=== PATIENT | female | born 1965 ===

== ENCOUNTER 2017-10-12 14:46 | Emergency (ER) | payer SELFPAY | END 2017-10-12 15:03 | disposition left against medical advice (07) | LOC: ED 14:46 | DX: M62.838 Other muscle spasm (principal); Z53.21 Procedure and treatment not carried out due to patient leaving prior to being seen by health care provider ==

== ENCOUNTER 2021-10-14 14:06 | Inpatient (IN) | payer BC ==
[2021-10-14] MEDS ORDERED: SODIUM CHLORIDE 0.9% 1000 ML 1,000 ML IV ONE (14:08)
--- NOTE | 2021-10-14 14:11 | Emergency Department Report ---
ED General Adult HPI - General Chief complaint: Chest Pain Stated complaint: chest pain Time Seen by Provider: 10/14/21 14:07 - History of Present Illness Initial comments: Patient presents by EMS secondary chest pain. She woke up this morning. She felt well. About 9 AM she developed some chest tightness. It is precordial ti ghtness. She has not noticed any aggravating or alleviating factors. She states that she just could not get rid of it. She has had symptoms like this before. She was told it was her A. fib. Patient states her heart was racing. She states that she was slightly dizzy and lightheaded. She denies vertiginous symptoms. There is no nausea or vomiting. She has no history of recent travel or trauma. There was no history of cough or congestion. EMS was called. They felt the patient was in V. tach with a pulse and gave amiodarone 150 mg. They state that it helped initially, but the effect was transient. - Related Data Allergies Allergy/AdvReac Type Severity Reaction Status Date / Time ampicillin Allergy Shortness Verified 10/14/21 14:14 of Breath ED Review of Systems ROS: Stated complaint: chest pain Other details as noted in HPI Comment: All other systems reviewed and negative Constitutional: denies: fever Eyes: denies: vision change ENT: denies: throat pain Respiratory: denies: cough Cardiovascular: as per HPI Endocrine: denies: unexplained weight loss Gastrointestinal: denies: abdominal pain Genitourinary: denies: dysuria Musculoskeletal: denies: back pain Skin: denies: rash Neurological: denies: headache Hematological/Lymphatic: denies: easy bruising ED Physical Exam - General Limitations: No Limitations, Other (Pulse ox noted and normal by EMS) General appearance: alert, in no apparent distress, obese - Head Head exam: Present: atraumatic, normocephalic - Eye Eye exam: Present: normal appearance, EOMI. Absent: scleral icterus - ENT ENT exam: Present: normal orophraynx, normal external ear exam - Neck Neck exam: Present: normal inspection. Absent: meningismus - Respiratory Respiratory exam: Present: normal lung sounds bilaterally. Absent: respiratory distress - Cardiovascular Cardiovascular Exam: Present: tachycardia, irregular rhythm - GI/Abdominal GI/Abdominal exam: Present: soft. Absent: distended, tenderness - Extremities Exam Extremities exam: Present: normal capillary refill. Absent: calf tenderness - Back Exam Back exam: Absent: CVA tenderness (R), CVA tenderness (L) - Neurological Exam Neurological exam: Present: alert, oriented X3, CN II-XII intact. Absent: motor sensory deficit - Psychiatric Psychiatric exam: Present: normal affect, normal mood - Skin Skin exam: Present: warm, dry ED Course Vital Signs 10/14/21 10/14/21 14:07 14:17 Temperature 98.6 F Pulse Rate 158 H Respiratory 20 Rate Blood Pressure 150/105 [Left] O2 Sat by Pulse 98 95 Oximetry - Reevaluation(s) Reevaluation #1: 10/14/21 14:11 EMS was met upon arrival. EKG and labs were ordered. Old records noted. Reevaluation #2: 10/14/21 14:37 EKG was noted. There is no old EKG for comparison. Amiodarone drip and bolus were ordered. Reevaluation #3: 10/14/21 16:39 Labs are noted. These were reviewed with the patient and family. The patient was adamant that she be transferred to another hospital or leave. I had exte nsive discussion with her and her daughter and family about her diagnosis of ventricular tachycardia, the risks and benefits, as well as potential downsides of being here. Ultimately, patient agreed to stay here in this hospital. There was no electrolyte derangement. Etiology for the electrical malfunction of her heart was not clear. There is no evidence of STEMI. ED Medical Decision Making - Lab Data Result diagrams: 10/14/21 14:18 10/14/21 14:18 Rhythm strip #1: Wide-complex tachycardia at 150 consistent with ventricular tachycardia. This is very regular. Monitor observed in seconds. Rhythm strip #2: Patient has an underlying sinus rhythm with frequent unifocal PVCs. These are sometimes by themselves, sometimes in couplets, and sometimes in runs of 5-6. Monitor observe 10 seconds. - EKG Data -: EKG Interpreted by Me (Rhythm) - EKG Data When compared to previous EKG there are: previous EKG unavailable 10/14/21 14:37 Patient has a wide-complex tachycardia at 150. QRS is wide at 166. QT corrected is prolonged at 595. Patient seems to have a very regular wide- complex tachycardia. She has a pulse. This is possibly V. tach versus atrial fibrillation with a bundle branch block. - Radiology Data Radiology results: report reviewed - Medical Decision Making Patient presents with chest pain and evidence of ventricular tachycardia. Based on her rhythm strip, she does have an underlying normal sinus rhythm. She has frequent PVCs that are unifocal. This would be consistent with a V. tach on her initial presentation. She has been stabilized with amiodarone. She was not hemodynamically unstable so cardioversion was not initiated. There is no metabolic derangement to account for the symptoms. There is no evidence of STEMI. She will undergo cardiac evaluation and admission to this hospital. Critical Care Time: Yes (65 minutes exclusive of all procedures) Critical care attestation.: If time is entered above; I have spent that time in minutes in the direct care of this critically ill patient, excluding procedure time. ED Disposition Clinical Impression: Precordial chest pain, Ventricular tachycardia Disposition: 09 ADMITTED INPATIENT Is pt being admited?: Yes Condition: Stable Instructions: Nonspecific Chest Pain, Adult
--- NOTE | 2021-10-14 14:45 | XRay Report ---
CHEST 1 VIEW INDICATION: Chest pain. COMPARISON: None FINDINGS: Support devices: None. Heart: Within normal limits. Lungs/Pleura: No acute air space or interstitial disease. Additional findings: None. IMPRESSION: No acute findings. Signer Name: Kyle Fuentes Jr, MD Signed: 10/14/2021 2:41 PM Workstation Name: [id number]
[2021-10-14] MEDS ORDERED: AMIODARONE 150 MG in DEXTROSE 5% IN WATER 100 ML IV ONE (14:46)
[2021-10-14 14:48] LABS: Basophils # (Auto) 0.1 K/mm3 (0.0-0.1); Basophils % (Auto) 1.1 % (0.0-1.8); Eosinophils # (Auto) 0.1 K/mm3 (0.0-0.4); Eosinophils % (Auto) 1.3 % (0.0-4.3); Hematocrit 45.3 % (30.3-42.9); Hemoglobin 14.7 gm/dl (10.1-14.3); Lymphocytes # (Auto) 2.8 K/mm3 (1.2-5.4); Lymphocytes % (Auto) 33.1 % (13.4-35.0); Mean Corpuscular HGB Conc 33 % (30-34); Mean Corpuscular Volume 88 fl (79-97); Monocytes # (Auto) 0.7 K/mm3 (0.0-0.8); Monocytes % (Auto) 8.2 % (0.0-7.3); Platelet Count 290 K/mm3 (140-440); Red Blood Count 5.14 M/mm3 (3.65-5.03); Red Cell Distribution Width 14.7 % (13.2-15.2)
[2021-10-14] MEDS: AMIODARONE 360 MG in DEXTROSE 5% IN WATER 192.8 ML IV SCH ×2 (15:00→20:48)
[2021-10-14] MEDS ORDERED: AMIODARONE 150 MG in DEXTROSE 5% IN WATER 97 ML IV ONE (15:00)
[2021-10-14 15:02] LABS: BUN/Creatinine Ratio 16; Blood Urea Nitrogen 13 mg/dL (7-17); Hemolysis Index 27
--- NOTE | 2021-10-14 18:05 | History and Physical Report ---
History of Present Illness Date of examination: 10/14/21 Date of admission: 10/14/2021 Chief complaint: Palpitations and chest pain since 9 AM History of present illness: 55-year-old -[place] female with history of insulin-dependent diabetes, hypertension, hyperlipidemia and vitamin D deficiency comes in for palpitations and chest tightness since 9 AM. Apparently he had the symptoms before but did not see a [employer] at that time patient felt dizzy and lightheaded. Chest tightness is intermittent. Precipitated by palpitations. EMS was called and tiffanie kaur was given amiodarone 150 mg. Route of administration is not known. No fever or chills. No diaphoresis. No shortness of breath. Patient says her heart is fine and wanted to leave AMA after couple hours. ED course--- patient undergo signed out AMA.. Patient was explained the disease process and the pathophysiology after which he decided to stay. Patient was started on amiodarone IV and oral diltiazem. Patient was in V. tach with a heart rate of 160. Intermittently changed to sinus rhythm with frequent PVCs. Past History Past Medical History: diabetes, hypertension, hyperlipidemia, other (Vitamin D deficiency) Past Surgical History: No surgical history Social history: lives with family, full code Family history: hypertension Review of Systems ROS: Stated complaint: chest pain Other details as noted in HPI Comment: All other systems reviewed and negative Constitutional: denies: fever Eyes: denies: vision change ENT: denies: throat pain Respiratory: denies: cough Cardiovascular: Palpitations and chest tightness. Endocrine: denies: unexplained weight loss Gastrointestinal: denies: abdominal pain Genitourinary: denies: dysuria Musculoskeletal: denies: back pain Skin: denies: rash Neurological: denies: headache Hematological/Lymphatic: denies: easy bruising Medications and Allergies Allergies Allergy/AdvReac Type Severity Reaction Status Date / Time ampicillin Allergy Shortness Verified 10/14/21 14:14 of Breath Home Medications Medication Instructions Recorded Confirmed Last Taken Type Amlodipine Besylate [Norvasc] 10 mg PO DAILY 10/15/21 10/15/21 Unknown History Ascorbic Acid [Vitamin C] 500 mg PO DAILY 10/15/21 10/15/21 Unknown History AtorvaSTATin 10 mg PO DAILY 10/15/21 10/15/21 Unknown History Ergocalciferol [Vitamin D2] 1 cap PO QWEEK 10/15/21 10/15/21 Unknown History Insulin Glargine,Hum.rec.anlog 22 units SUB-Q QHS 10/15/21 10/15/21 Unknown History [Toumarilino Solostar] Losartan [Cozaar] 25 mg PO QDAY 10/15/21 10/15/21 Unknown History Metoprolol Succinate [Toprol Xl] 50 mg PO DAILY 10/15/21 10/15/21 Unknown History Vitamin E Mixed [Vitamin E] 1,000 unit PO DAILY 10/15/21 10/15/21 Unknown History metFORMIN XR [Glucophage XR] 1,000 mg PO QDAY 10/15/21 10/15/21 Unknown History Active Meds: Active Medications Amiodarone HCl 360 mg/ (Dextrose) 200 mls @ 33.333 mls/hr IV DIRECT NING; Protocol Exam - Constitutional Vitals: Temp Pulse Resp BP Pulse Ox 98.6 F 127 H 16 128/92 99 10/14/21 14:07 10/14/21 17:06 10/14/21 17:06 10/14/21 17:06 10/14/21 17:06 General appearance: Present: no acute distress, well-nourished - EENT Eyes: Present: PERRL ENT: hearing intact, clear oral mucosa - Neck Neck: Present: supple, normal ROM - Respiratory Respiratory effort: normal Respiratory: bilateral: CTA - Cardiovascular Heart rate: 160 Rhythm: regularly irregular Heart Sounds: Present: S1 & S2. Absent: rub, click - Extremities Extremities: no ischemia, pulses intact, pulses symmetrical, No edema Peripheral Pulses: within normal limits - Abdominal General gastrointestinal: Present: soft, non-tender, non-distended, normal bowel sounds Female genitourinary: Present: normal - Integumentary Integumentary: Present: clear, warm, dry - Musculoskeletal Musculoskeletal: gait normal, strength equal bilaterally - Psychiatric Psychiatric: appropriate mood/affect, intact judgment & insight - Neurologic Neurologic: CNII-XII intact, moves all extremities - Allied Health Allied health notes reviewed: nursing, case management HEART Score - HEART Score History: Moderately suspicious Age: 45-65 Risk factors: > 3 risk factors or hx of atherosclerotic disease Troponin: Troponin T < 0.010 ng/mL (0.00-0.029) 10/14/21 17:05 Troponin: < normal limit - Critical Actions Critical Actions: 4-6 pts:12-16.6% risk of adverse cardiac event. Should be admitted Results - Labs CBC & Chem 7: 10/15/21 05:06 10/15/21 05:06 Labs: Laboratory Last Values WBC 8.5 K/mm3 (4.5-11.0) 10/14/21 14:18 RBC 5.14 M/mm3 (3.65-5.03) H 10/14/21 14:18 Hgb 14.7 gm/dl (10.1-14.3) H 10/14/21 14:18 Hct 45.3 % (30.3-42.9) H 10/14/21 14:18 MCV 88 fl (79-97) 10/14/21 14:18 MCH 29 pg (28-32) 10/14/21 14:18 MCHC 33 % (30-34) 10/14/21 14:18 RDW 14.7 % (13.2-15.2) 10/14/21 14:18 Plt Count 290 K/mm3 (140-440) 10/14/21 14:18 Lymph % (Auto) 33.1 % (13.4-35.0) 10/14/21 14:18 Valley % (Auto) 8.2 % (0.0-7.3) H 10/14/21 14:18 Eos % (Auto) 1.3 % (0.0-4.3) 10/14/21 14:18 Baso % (Auto) 1.1 % (0.0-1.8) 10/14/21 14:18 Lymph # (Auto) 2.8 K/mm3 (1.2-5.4) 10/14/21 14:18 Valley # (Auto) 0.7 K/mm3 (0.0-0.8) 10/14/21 14:18 Eos # (Auto) 0.1 K/mm3 (0.0-0.4) 10/14/21 14:18 Baso # (Auto) 0.1 K/mm3 (0.0-0.1) 10/14/21 14:18 Seg Neutrophils % 56.3 % (40.0-70.0) 10/14/21 14:18 Seg Neutrophils # 4.8 K/mm3 (1.8-7.7) 10/14/21 14:18 Sodium 145 mmol/L (137-145) 10/14/21 14:18 Potassium 3.5 mmol/L (3.6-5.0) L 10/14/21 14:18 Chloride 104.8 mmol/L (98-107) 10/14/21 14:18 Carbon Dioxide 24 mmol/L (22-30) 10/14/21 14:18 Anion Gap 20 mmol/L 10/14/21 14:18 BUN 13 mg/dL (7-17) 10/14/21 14:18 Creatinine 0.8 mg/dL (0.6-1.2) 10/14/21 14:18 Estimated GFR > 60 ml/min 10/14/21 14:18 BUN/Creatinine Ratio 16 % 10/14/21 14:18 Glucose 188 mg/dL (65-100) H 10/14/21 14:18 Calcium 10.0 mg/dL (8.4-10.2) 10/14/21 14:18 Magnesium 2.00 mg/dL (1.7-2.3) 10/14/21 14:18 Troponin T < 0.010 ng/mL (0.00-0.029) 10/14/21 17:05 Short CBC 10/14/21 10/15/21 Range/Units 14:18 05:06 WBC 8.5 5.6 (4.5-11.0) K/mm3 Hgb 14.7 H 13.7 (10.1-14.3) gm/dl Hct 45.3 H 41.8 (30.3-42.9) % Plt Count 290 225 (140-440) K/mm3 [facility] 10/14/21 10/15/21 14:18 05:06 Sodium 145 144 Potassium 3.5 L 3.0 L Chloride 104.8 104.7 Carbon Dioxide 24 27 BUN 13 10 Creatinine 0.8 0.5 L Glucose 188 H 139 H Calcium 10.0 9.4 Cardiac Enzymes 10/14/21 10/14/21 Range/Units 14:18 17:05 Troponin T < 0.010 < 0.010 (0.00-0.029) ng/mL Liver Function 10/15/21 Range/Units 05:06 Total Bilirubin 0.20 (0.1-1.2) mg/dL AST 18 (5-40) units/L ALT 16 (7-56) units/L Alkaline Phosphatase 74 (35-129) units/L Albumin 4.2 (3.9-5) g/dL - Imaging and Cardiology EKG: report reviewed (Ventricular tachycardia with heart rate of 160/min IVCD) Imaging and Cardiology: Chest x-ray no acute findings Assessment and Plan Assessment and plan: Critical care statement The high probability OF a clinically significant sudden or life-threatening deterioration of the cardiorespiratory system and endocrine system required my full and direct attention, intervention and postoperative management. The aggregate critical care time was 40 minutes. The time is in addition to time spent performing reported procedures but includes the followin: Data review and interpretation 2: Patient assessment and monitoring of vital signs 3: Documentation 4:: Medication orders and management Advance Directives: Yes (Full code) VTE prophylaxis?: Chemical Plan of care discussed with patient/family: Yes - Patient Problems (1) Ventricular tachycardia Current Visit: Yes Status: Acute Plan to address problem: Patient initiated on IV amiodarone and oral diltiazem 30 mg every 6 hours IV Lopressor given Cardiology consult requested Patient responding to amiodarone drip Defer to cardiology regarding further management Will defer to [facility] who are inspector heating and refrigeration regarding EPS consult. (2) Acute coronary syndrome Current Visit: Yes Status: Acute Plan to address problem: Ventricular rate induced Opponens are negative for now Lexiscan deferred to cardiology (3) Hypertension Current Visit: Yes Status: Chronic Qualifiers: Hypertension type: primary hypertension Qualified Code(s): I10 - Essential (primary) hypertension Plan to address problem: Continue antihypertensives Diltiazem 30 mg every 6 hours requested Can be changed to once a day diltiazem CD once the patient is stable (4) IDDM (insulin dependent diabetes mellitus) Current Visit: Yes Status: Chronic Plan to address problem: Continue home insulin and coverage Check hemoglobin A1c (5) Vitamin D deficiency Current Visit: Yes Status: Chronic Plan to address problem: Hold vitamin D for now (6) Hypokalemia Current Visit: Yes Status: Acute Plan to address problem: Supplemented (7) Obesity (BMI 30-39.9) Current Visit: Yes Status: Chronic Plan to address problem: Patient to be referred to Dr. Cohen-bariatric surgeon at the time of discharge (8) DVT prophylaxis Current Visit: Yes Status: Acute Plan to address problem: On anticoagulation GI prophylaxis (9) Advance care planning Current Visit: Yes Status: Acute Plan to address problem: Patient and family heart disease education. Care plan discussed. Diagnosis discussed, prognosis discussed. Patient is full code. Patient and family acknowledged understanding and agreement with care plan. +30 minutes.
[2021-10-14] MEDS ORDERED: ACETAMINOPHEN 325 MG TAB PO PRN (18:11)
[2021-10-14] MEDS ORDERED: HYDROmorphone 1 MG/1 ML INJ IV PRN (18:11)
[2021-10-14] MEDS ORDERED: ONDANSETRON 4 MG/2 ML INJ IV PRN (18:11)
[2021-10-14] MEDS ORDERED: oxyCODONE /ACETAMINOPHEN 5-325MG TAB PO PRN (18:11)
[2021-10-14] MEDS ORDERED: METOPROLOL TARTRATE 5 MG/5 ML INJ IV ONE (18:29)
[2021-10-14] MEDS: dilTIAZem 30 MG TAB PO SCH (20:51)
[2021-10-14] MEDS: ENOXAPARIN 40 MG/0.4 ML INJ SUB-Q SCH (20:51)
[2021-10-15] MEDS: dilTIAZem 30 MG TAB PO SCH ×4 (00:59→21:19)
[2021-10-15 05:25] LABS: Basophils % (Auto) 0.6 % (0.0-1.8); Eosinophils # (Auto) 0.1 K/mm3 (0.0-0.4); Eosinophils % (Auto) 1.6 % (0.0-4.3); Hematocrit 41.8 % (30.3-42.9); Hemoglobin 13.7 gm/dl (10.1-14.3); Lymphocytes # (Auto) 2.1 K/mm3 (1.2-5.4); Lymphocytes % (Auto) 36.9 % (13.4-35.0); Mean Corpuscular HGB Conc 33 % (30-34); Mean Corpuscular Volume 89 fl (79-97); Monocytes # (Auto) 0.5 K/mm3 (0.0-0.8); Monocytes % (Auto) 8.8 % (0.0-7.3); Platelet Count 225 K/mm3 (140-440); Red Blood Count 4.72 M/mm3 (3.65-5.03); Red Cell Distribution Width 14.7 % (13.2-15.2)
[2021-10-15 05:48] LABS: Alanine Aminotransferase 16 units/L (7-56); Albumin 4.2 g/dL (3.9-5); BUN/Creatinine Ratio 20; Blood Urea Nitrogen 10 mg/dL (7-17); Calcium 9.4 mg/dL (8.4-10.2); Hemolysis Index 8
[2021-10-15] MEDS ORDERED: POTASSIUM CHLORIDE ER 20 MEQ TAB PO ONE (06:16)
[2021-10-15] MEDS: POTASSIUM CHLORIDE ER 20 MEQ TAB PO SCH ×2 (06:55→11:10)
[2021-10-15] MEDS ORDERED: metFORMIN XR 500MG TAB PO SCH (08:00)
[2021-10-15] MEDS: INSULIN LISPRO 100 UNIT/ML SUB-Q SCH ×5 (08:06→21:22)
--- NOTE | 2021-10-15 08:12 | Progress Note ---
Assessment and Plan Assessment and plan: HPI: 55-year-old -British female with history of insulin-dependent diabetes, hypertension, hyperlipidemia and vitamin D deficiency comes in for palpitations and chest tightness since 9 AM. Apparently he had the symptoms before but did not see a shopper insights manager at that time patient felt dizzy and lightheaded. Chest tightness is intermittent. Precipitated by palpitations. EMS was called and patient was given amiodarone 150 mg. Route of administration is not known. No fever or chills. No diaphoresis. No shortness of breath. Patient says her heart is fine and wanted to leave AMA after couple hours. ED course--- patient undergo signed out AMA.. Patient was explained the disease process and the pathophysiology after which he decided to stay. Patient was started on amiodarone IV and oral diltiazem. Patient was in V. tach with a heart rate of 160. Intermittently changed to sinus rhythm with frequent PVCs. Admitted to IMCU for further management and observation for ventricular tachycardia. Hospital Course: 10/15: Currently on toprol and amiodorone for VT. Ventricular rate fluctuates between 80-120s. Based on extensive work up in past, cardiology recommends transfer. Will coordinate with them for arrangements. Assessment and Plan: # Ventricular tachycardia Current Visit: Yes Status: Acute Plan to address problem: Patient initiated on IV amiodarone and oral diltiazem 30 mg every 6 hours IV Lopressor given Cardiology consult requested Patient responding to amiodarone drip Defer to cardiology regarding further management Will defer to [facility], per note symptoms date back to 2010, had cardiac cath and EP study which were normla. Cardiac MR was also reported to be normal. EPS did not induce VT , patient was subsequently initiated on metoprolol. # Acute coronary syndrome Current Visit: Yes Status: Acute Plan to address problem: Ventricular rate induced Troponins are negative x 2 Lexiscan deferred to cardiology # Hypertension Current Visit: Yes Status: Chronic Qualifiers: Hypertension type: primary hypertension Qualified Code(s): I10 - Essential (primary) hypertension Plan to address problem: Continue home antihypertensives: metoprolol, amlodipine. # IDDM (insulin dependent diabetes mellitus) Current Visit: Yes Status: Chronic Plan to address problem: Hold home metformin Lantus 22 units qhs + SSI Continue home insulin and coverage Check hemoglobin A1c # Vitamin D deficiency Current Visit: Yes Status: Chronic Plan to address problem: Hold vitamin D for now # Hypokalemia Current Visit: Yes Status: Acute Plan to address problem: Supplemented mg 2.0 ERP # Obesity (BMI 30-39.9) Current Visit: Yes Status: Chronic Plan to address problem: Patient to be referred to Dr. Cohen-bariatric surgeon at the time of discharge # DVT prophylaxis Current Visit: Yes Status: Acute Plan to address problem: On anticoagulation GI prophylaxis (9) Advance care planning Current Visit: Yes Status: Acute Plan to address problem: Patient and family heart disease education. Care plan discussed. Diagnosis discussed, prognosis discussed. Patient is full code. Patient and family acknowledged understanding and agreement with care plan. +30 minutes. The high probability of a clinically significant, sudden or life threatening deterioration of the [cardiac] system(s) required my full and direct attention, intervention and personal management. The aggregate critical care time was [60] minutes. This time is in addition to time spent performing reported procedures but includes the following: [x] Data Review and interpretation [x] Patient assessment and monitoring of vital signs [x] Documentation [x] Medication orders and management History Interval history: NO acute complaints on encounter. Resting comfortably, no distress. she states her heart rate has been elevated like this previously. Patient states that she has a shopper insights manager OP at [facility] that had run some "tests" but could not recall much of what was completed. She was told to start metoprolol and has been on the medication since. Hospitalist Physical - Physical exam Narrative exam: Physical Exam: VITAL SIGNS: Reviewed. GENERAL: The patient appears normally developed, Vital signs as documented. HEAD: No signs of head trauma. EYES: Pupils are equal. Extraocular motions intact. EARS: Hearing grossly intact. MOUTH: Oropharynx is normal. NECK: No adenopathy, no JVD. CHEST: Chest with clear breath sounds bilaterally. No wheezes, rales, or rhonchi. CARDIAC: Regular rate and rhythm. S1 and S2, without murmurs, gallops, or rubs. VASCULAR: No Edema. Peripheral pulses normal and equal in all extremities. ABDOMEN: Soft, non tender and non distended. No rebound or guarding, and no masses palpated. Bowel Sounds normal. MUSCULOSKELETAL: Good range of motion of all major joints. Extremities without clubbing, cyanosis or edema. NEUROLOGIC EXAM: Alert and oriented x 4. no focal sensory or strength deficits. PSYCHIATRIC: Mood normal. SKIN: detail exam as documented in skin assessment - Constitutional Vitals: Temp Pulse Resp BP Pulse Ox 98.3 F 115 H 13 157/85 90 10/15/21 05:45 10/15/21 06:55 10/15/21 05:01 10/15/21 06:55 10/15/21 05:01 General appearance: Present: no acute distress, well-nourished HEART Score - HEART Score Age: 45-65 Risk factors: > 3 risk factors or hx of atherosclerotic disease Troponin: Troponin T < 0.010 ng/mL (0.00-0.029) 10/14/21 17:05 Troponin: < normal limit - Critical Actions Critical Actions: 4-6 pts:12-16.6% risk of adverse cardiac event. Should be admitted Results - Labs CBC & Chem 7: 10/15/21 05:06 10/15/21 05:06 Labs: Laboratory Last Values WBC 5.6 K/mm3 (4.5-11.0) 10/15/21 05:06 RBC 4.72 M/mm3 (3.65-5.03) 10/15/21 05:06 Hgb 13.7 gm/dl (10.1-14.3) 10/15/21 05:06 Hct 41.8 % (30.3-42.9) 10/15/21 05:06 MCV 89 fl (79-97) 10/15/21 05:06 MCH 29 pg (28-32) 10/15/21 05:06 MCHC 33 % (30-34) 10/15/21 05:06 RDW 14.7 % (13.2-15.2) 10/15/21 05:06 Plt Count 225 K/mm3 (140-440) 10/15/21 05:06 Lymph % (Auto) 36.9 % (13.4-35.0) H 10/15/21 05:06 [facility] % (Auto) 8.8 % (0.0-7.3) H 10/15/21 05:06 Eos % (Auto) 1.6 % (0.0-4.3) 10/15/21 05:06 Baso % (Auto) 0.6 % (0.0-1.8) 10/15/21 05:06 Lymph # (Auto) 2.1 K/mm3 (1.2-5.4) 10/15/21 05:06 [facility] # (Auto) 0.5 K/mm3 (0.0-0.8) 10/15/21 05:06 Eos # (Auto) 0.1 K/mm3 (0.0-0.4) 10/15/21 05:06 Baso # (Auto) 0.0 K/mm3 (0.0-0.1) 10/15/21 05:06 Seg Neutrophils % 52.1 % (40.0-70.0) 10/15/21 05:06 Seg Neutrophils # 2.9 K/mm3 (1.8-7.7) 10/15/21 05:06 Sodium 144 mmol/L (137-145) 10/15/21 05:06 Potassium 3.0 mmol/L (3.6-5.0) L 10/15/21 05:06 Chloride 104.7 mmol/L (98-107) 10/15/21 05:06 Carbon Dioxide 27 mmol/L (22-30) 10/15/21 05:06 Anion Gap 15 mmol/L 10/15/21 05:06 BUN 10 mg/dL (7-17) 10/15/21 05:06 Creatinine 0.5 mg/dL (0.6-1.2) L 10/15/21 05:06 Estimated GFR > 60 ml/min 10/15/21 05:06 BUN/Creatinine Ratio 20 % 10/15/21 05:06 Glucose 139 mg/dL (65-100) H 10/15/21 05:06 Calcium 9.4 mg/dL (8.4-10.2) 10/15/21 05:06 Magnesium 2.00 mg/dL (1.7-2.3) 10/14/21 14:18 Total Bilirubin 0.20 mg/dL (0.1-1.2) 10/15/21 05:06 AST 18 units/L (5-40) 10/15/21 05:06 ALT 16 units/L (7-56) 10/15/21 05:06 Alkaline Phosphatase 74 units/L (35-129) 10/15/21 05:06 Troponin T < 0.010 ng/mL (0.00-0.029) 10/14/21 17:05 Total Protein 6.7 g/dL (6.3-8.2) 10/15/21 05:06 Albumin 4.2 g/dL (3.9-5) 10/15/21 05:06 Albumin/Globulin Ratio 1.7 % 10/15/21 05:06 Perez/IV: Voiding Method Toilet Active Medications - Current Medications Current Medications: Generic Name Dose Route Start Last Admin Trade Name Freq PRN Reason Stop Dose Admin Acetaminophen 650 mg 10/14/21 18:11 Acetaminophen 325 Mg Tab PO Q4H PRN Pain MILD(1-3)/Fever >100.5/CORBIN Amlodipine Besylate 10 mg 10/15/21 10:00 Amlodipine 10 Mg Tab PO DAILY [facility] Ascorbic Acid 500 mg 10/15/21 10:00 Ascorbic Acid 500 Mg Tab PO DAILY [facility] Atorvastatin Calcium 10 mg 10/15/21 10:00 Atorvastatin 10 Mg Tab PO DAILY [facility] Diltiazem HCl 30 mg 10/14/21 19:00 10/15/21 06:55 Diltiazem 30 Mg Tab PO 30 mg Q6H [facility] Administration Enoxaparin Sodium 40 mg 10/14/21 19:00 10/14/21 20:51 Enoxaparin 40 Mg/0.4 Ml Inj SUB-Q 40 mg QDAY [facility] Administration Hydromorphone HCl 0.5 mg 10/14/21 18:11 Hydromorphone 1 Mg/1 Ml Inj IV Q3H PRN Pain , Severe (7-10) Amiodarone HCl 360 mg/ 200 mls @ 33.333 mls/hr 10/14/21 15:00 10/14/21 20:48 Dextrose IV 0.5 mg/min DIRECT [facility] 16.667 mls/hr Administration Protocol 1 MG/MIN Sodium Chloride 1,000 mls @ 75 mls/hr 10/14/21 18:15 Nacl 0.9% 1000 Ml IV DIRECT [facility] Insulin Glargine 22 units 10/15/21 22:00 Insulin Glargine 100 Units/Ml SUB-Q QHS [facility] Insulin Human Lispro 0 unit 10/15/21 07:30 10/15/21 08:06 Insulin Lispro 100 Unit/Ml SUB-Q Not Given ACHS [facility] Protocol Losartan Potassium 25 mg 10/15/21 08:00 Losartan 25 Mg Tab PO QDAY@0800 NING Metformin HCl 1,000 mg 10/15/21 08:00 Metformin Xr 500mg Tab PO QDDIAB NING Metoprolol Succinate 50 mg 10/15/21 10:00 Metoprolol Succinate Xl 50 Mg Tab PO DAILY NING Ondansetron HCl 4 mg 10/14/21 18:11 Ondansetron 4 Mg/2 Ml Inj IV Q8H PRN Nausea And Vomiting Oxycodone/Acetaminophen 1 tab 10/14/21 18:11 Oxycodone /Acetaminophen 5-325mg Tab PO Q6H PRN Pain, Moderate (4-6) Potassium Chloride 40 meq 10/15/21 07:00 10/15/21 06:55 Potassium Chloride Er 20 Meq Tab PO 10/15/21 11:00 40 meq Q4H NING Administration Sodium Chloride 10 ml 10/14/21 22:00 10/14/21 22:22 Sodium Chloride 0.9% 10 Ml Flush Syringe IV 10 ml BID NING Administration Sodium Chloride 10 ml 10/14/21 18:11 Sodium Chloride 0.9% 10 Ml Flush Syringe IV PRN PRN LINE FLUSH
[2021-10-15] MEDS: LOSARTAN 25 MG TAB PO SCH (08:14)
--- NOTE | 2021-10-15 08:50 | Electrocardiograph Report ---
[facility] Test Date: 2021-10-14 Test Time: 14:24:56 Pat Name: HARISH PAGAN Department: Room: A265 1 Gender: F Clinical Pharmacologist: ZACHARIAH : 1965 Requested By: RICK BULLOCK Order Number: [id number] Reading MD: Marcell Stephenson Measurements Intervals [place] Rate: 150 P: -59 ME: 130 QRS: 87 QRSD: 166 T: -89 QT: 376 QTc: 595 Interpretive Statements WIDE COMPLEX TACHYCARDIA consider vtach No previous ECG available for comparison Electronically Signed On 10-15-2021 8:50:04 EST by Marcell Stephenson
[2021-10-15] MEDS: AMIODARONE 360 MG in DEXTROSE 5% IN WATER 192.8 ML IV SCH ×2 (08:57→18:14)
[2021-10-15] MEDS: SODIUM CHLORIDE 0.9% 1000 ML 1,000 ML IV SCH ×2 (08:59→21:35)
[2021-10-15] MEDS: METOPROLOL SUCCINATE XL 50 MG TAB PO SCH (09:01)
[2021-10-15] MEDS: amLODIPine 10 MG TAB PO SCH (09:02)
[2021-10-15] MEDS: ASCORBIC ACID 500 MG TAB PO SCH (09:43)
[2021-10-15] MEDS: ENOXAPARIN 40 MG/0.4 ML INJ SUB-Q SCH (09:43)
[2021-10-15] MEDS ORDERED: AMIODARONE 150 MG in DEXTROSE 5% IN WATER 97 ML IV SCH (09:45)
--- NOTE | 2021-10-15 11:35 | Consultation ---
History of Present Illness Consult date: 10/15/21 Consult reason: arrhythmia, other History of present illness: The patient is a 56-year-old woman who presented to the hospital with chest tightness palpitations and dizziness, found with sustained wide-complex tachycardia with left bundle branch block morphology, rate of 150. On 12-lead EKG, rhythm was consistent with sustained ventricular tachycardia. She was treated with intravenous amiodarone in the emergency room and admitted to the CCU. She currently has rate turn to sinus rhythm but continues to have bursts of nonsustained ventricular tachycardia while on intravenous amiodarone and oral metoprolol. Patient works as a bus driver school, and states that her symptoms date back to a year ago, much 2020. At that time, she underwent extensive cardiac and electrophysiologic work-up at [facility]. A cardiac catheterization showed no significant coronary artery disease. Left ventricular systolic function was normal on LV angiography and echocardiogram. A cardiac MRI was also done and reported normal. She then underwent an electrophysiologic study which did not induce the ventricular tachycardia, therefore an ablation could not be performed. She was then placed on metoprolol therapy. As symptoms have been recurrent, prompting further evaluation at [facility] in recent weeks. The records from [facility] and not available for review at this time. The patient is currently comfortable in the ICU bed, alert and oriented x3, in no acute distress. Past History Past Medical History: arrhythmia (Ventricular tachycardia), diabetes, hyperte nsion, hyperlipidemia Past Surgical History: No surgical history, Other (Electrophysiologic study 11/2020 at [facility]) Social history: lives with family, full code Family history: hypertension Medications and Allergies Allergies Allergy/AdvReac Type Severity Reaction Status Date / Time ampicillin Allergy Shortness Verified 10/14/21 14:14 of Breath Home Medications Medication Instructions Recorded Confirmed Last Taken Type Amlodipine Besylate [Norvasc] 10 mg PO DAILY 10/15/21 10/15/21 Unknown History Ascorbic Acid [Vitamin C] 500 mg PO DAILY 10/15/21 10/15/21 Unknown History AtorvaSTATin 10 mg PO DAILY 10/15/21 10/15/21 Unknown History Ergocalciferol [Vitamin D2] 1 cap PO QWEEK 10/15/21 10/15/21 Unknown History Insulin Glargine,Hum.rec.anlog 22 units SUB-Q QHS 10/15/21 10/15/21 Unknown History [Edjenwagner Rinconnickar] Losartan [Cozaar] 25 mg PO QDAY 10/15/21 10/15/21 Unknown History Metoprolol Succinate [Toprol Xl] 50 mg PO DAILY 10/15/21 10/15/21 Unknown History Vitamin E Mixed [Vitamin E] 1,000 unit PO DAILY 10/15/21 10/15/21 Unknown History metFORMIN XR [Glucophage XR] 1,000 mg PO QDAY 10/15/21 10/15/21 Unknown History Active Meds: Active Medications Acetaminophen (Acetaminophen 325 Mg Tab) 650 mg PO Q4H PRN PRN Reason: Pain MILD(1-3)/Fever >100.5/CORBIN Amlodipine Besylate (Amlodipine 10 Mg Tab) 10 mg PO DAILY [facility] Last Admin: 10/15/21 09:02 Dose: 10 mg Ascorbic Acid (Ascorbic Acid 500 Mg Tab) 500 mg PO DAILY [facility] Last Admin: 10/15/21 09:43 Dose: 500 mg Atorvastatin Calcium (Atorvastatin 10 Mg Tab) 10 mg PO DAILY [facility] Last Admin: 10/15/21 09:02 Dose: 10 mg Diltiazem HCl (Diltiazem 30 Mg Tab) 30 mg PO Q6H [facility] Last Admin: 10/15/21 06:55 Dose: 30 mg Enoxaparin Sodium (Enoxaparin 40 Mg/0.4 Ml Inj) 40 mg SUB-Q QDAY [facility] Last Admin: 10/15/21 09:43 Dose: 40 mg Hydromorphone HCl (Hydromorphone 1 Mg/1 Ml Inj) 0.5 mg IV Q3H PRN PRN Reason: Pain , Severe (7-10) Amiodarone HCl 360 mg/ (Dextrose) 200 mls @ 33.333 mls/hr IV DIRECT NING; Protocol Last Admin: 10/15/21 08:57 Dose: 0.5 mg/min, 16.667 mls/hr Sodium Chloride (Nacl 0.9% 1000 Ml) 1,000 mls @ 75 mls/hr IV DIRECT NING Last Admin: 10/15/21 08:59 Dose: 75 mls/hr Insulin Glargine (Insulin Glargine 100 Units/Ml) 22 units SUB-Q QHS [facility] Insulin Human Lispro (Insulin Lispro 100 Unit/Ml) 0 unit SUB-Q ACHS [facility]; Protocol Last Admin: 10/15/21 08:06 Dose: Not Given Losartan Potassium (Losartan 25 Mg Tab) 25 mg PO QDAY@0800 [facility] Last Admin: 10/15/21 08:14 Dose: 25 mg Metoprolol Succinate (Metoprolol Succinate Xl 50 Mg Tab) 50 mg PO DAILY [facility] Last Admin: 10/15/21 09:01 Dose: 50 mg Ondansetron HCl (Ondansetron 4 Mg/2 Ml Inj) 4 mg IV Q8H PRN PRN Reason: Nausea And Vomiting Oxycodone/Acetaminophen (Oxycodone /Acetaminophen 5-325mg Tab) 1 tab PO Q6H PRN PRN Reason: Pain, Moderate (4-6) Sodium Chloride (Sodium Chloride 0.9% 10 Ml Flush Syringe) 10 ml IV BID [facility] Last Admin: 10/15/21 11:10 Dose: 10 ml Sodium Chloride (Sodium Chloride 0.9% 10 Ml Flush Syringe) 10 ml IV PRN PRN PRN Reason: LINE FLUSH Review of Systems Cardiovascular: chest pain, palpitations, rapid/irregular heart beat, lightheadedness, shortness of breath, no orthopnea, no edema, no syncope Physical Examination Vital Signs Temp Pulse Resp BP Pulse Ox 98.6 F 158 H 20 150/105 98 10/14/21 14:07 10/14/21 14:07 10/14/21 14:07 10/14/21 14:07 10/14/21 14:07 General appearance: no acute distress HEENT: Positive: PERRL Neck: Positive: neck supple Cardiac: Positive: Irregularly Regular Lungs: Positive: Decreased Breath Sounds Neuro: Positive: Grossly Intact Abdomen: Positive: Soft Female genitourinary: deferred Skin: Positive: Clear Extremities: Absent: edema Results 10/15/21 05:06 10/15/21 05:06 Cardiac Enzymes 10/15/21 Range/Units 05:06 AST 18 (5-40) units/L CBC 10/14/21 10/15/21 Range/Units 14:18 05:06 WBC 8.5 5.6 (4.5-11.0) K/mm3 RBC 5.14 H 4.72 (3.65-5.03) M/mm3 Hgb 14.7 H 13.7 (10.1-14.3) gm/dl Hct 45.3 H 41.8 (30.3-42.9) % Plt Count 290 225 (140-440) K/mm3 Lymph # (Auto) 2.8 2.1 (1.2-5.4) K/mm3 [facility] # (Auto) 0.7 0.5 (0.0-0.8) K/mm3 Eos # (Auto) 0.1 0.1 (0.0-0.4) K/mm3 Baso # (Auto) 0.1 0.0 (0.0-0.1) K/mm3 Comprehensive Metabolic Panel 10/14/21 10/15/21 Range/Units 14:18 05:06 Sodium 145 144 (137-145) mmol/L Potassium 3.5 L 3.0 L (3.6-5.0) mmol/L Chloride 104.8 104.7 (98-107) mmol/L Carbon Dioxide 24 27 (22-30) mmol/L BUN 13 10 (7-17) mg/dL Creatinine 0.8 0.5 L (0.6-1.2) mg/dL Glucose 188 H 139 H (65-100) mg/dL Calcium 10.0 9.4 (8.4-10.2) mg/dL AST 18 (5-40) units/L ALT 16 (7-56) units/L Alkaline Phosphatase 74 (35-129) units/L Total Protein 6.7 (6.3-8.2) g/dL Albumin 4.2 (3.9-5) g/dL EKG interpretations - Telemetry EKG Rhythm: V-Tachycardia (Ventricular tachycardia, rate 150, left bundle branch block morphology) Assessment and Plan - Patient Problems (1) Sustained ventricular tachycardia Current Visit: Yes Status: Acute Plan to address problem: We will continue Toprol and suppressive therapy with amiodarone, based on her extensive prior cardiac work-up, the patient needs to be transferred to her doctors at [facility] for further evaluation and management.
[2021-10-15] MEDS: INSULIN GLARGINE 100 UNITS/ML SUB-Q SCH (21:23)
[2021-10-15] MEDS ORDERED: [UNRECOGNIZED DRUG - OTHER] SUB-Q SCH (22:00)
[2021-10-15] MEDS ORDERED: INSULIN GLARGINE SUB-Q SCH (22:00)
[2021-10-16] MEDS: dilTIAZem 30 MG TAB PO SCH ×2 (01:56→07:14)
--- NOTE | 2021-10-16 08:36 | Progress Note ---
Assessment and Plan Assessment and plan: HPI: 55-year-old -Ind[place]ian female with history of insulin-dependent diabetes, hypertension, hyperlipidemia and vitamin D deficiency comes in for palpitations and chest tightness since 9 AM. Apparently he had the symptoms before but did not see a ibm websphere commerce developer at that time patient felt dizzy and lightheaded. Chest tightness is intermittent. Precipitated by palpitations. EMS was called and patient was given amiodarone 150 mg. Route of administration is not known. No fever or chills. No diaphoresis. No shortness of breath. Patient says her heart is fine and wanted to leave AMA after couple hours. ED course--- patient undergo signed out AMA.. Patient was explained the disease process and the pathophysiology after which he decided to stay. Patient was started on amiodarone IV and oral diltiazem. Patient was in V. tach with a heart rate of 160. Intermittently changed to sinus rhythm with frequent PVCs. Admitted to IMCU for further management and observation for ventricular tachycardia. Hospital Course: 10/15: Currently on toprol and amiodorone for VT. Ventricular rate fluctuates between 80-120s. Based on extensive work up in past, cardiology recommends transfer. Will coordinate with them for arrangements. 10/16 : remains on suppressive therapy. Still waiting for bed at [facility] for transfer so patient can get EP services with her ibm websphere commerce developer there. Assessment and Plan: # Ventricular tachycardia Current Visit: Yes Status: Acute Plan to address problem: Patient initiated on IV amiodarone and oral diltiazem 30 mg every 6 hours IV Lopressor given Cardiology consult requested Patient responding to amiodarone drip Defer to cardiology regarding further management Will defer to [facility], per note symptoms date back to 2010, had cardiac cath and EP study which were normla. Cardiac MR was also reported to be normal. EPS did not induce VT , patient was subsequently initiated on metoprolol. # Acute coronary syndrome Current Visit: Yes Status: Acute Plan to address problem: Ventricular rate induced Troponins are negative x 2 Lexiscan deferred to cardiology # Hypertension Current Visit: Yes Status: Chronic Qualifiers: Hypertension type: primary hypertension Qualified Code(s): I10 - Essential (primary) hypertension Plan to address problem: Continue home antihypertensives: metoprolol, amlodipine. # IDDM (insulin dependent diabetes mellitus) Current Visit: Yes Status: Chronic Plan to address problem: Hold home metformin Lantus 22 units qhs + SSI Continue home insulin and coverage Check hemoglobin A1c # Vitamin D deficiency Current Visit: Yes Status: Chronic Plan to address problem: Hold vitamin D for now # Hypokalemia Current Visit: Yes Status: Acute Plan to address problem: Supplemented mg 2.0 ERP # Obesity (BMI 30-39.9) Current Visit: Yes Status: Chronic Plan to address problem: Patient to be referred to Dr. Cohen-bariatric surgeon at the time of discharge # DVT prophylaxis Current Visit: Yes Status: Acute Plan to address problem: On anticoagulation GI prophylaxis (9) Advance care planning Current Visit: Yes Status: Acute Plan to address problem: Patient and family heart disease education. Care plan discussed. Diagnosis discussed, prognosis discussed. Patient is full code. Patient and family acknowledged understanding and agreement with care plan. +30 minutes. The high probability of a clinically significant, sudden or life threatening deterioration of the [cardiac] system(s) required my full and direct attention, intervention and personal management. The aggregate critical care time was [60] minutes. This time is in addition to time spent performing reported procedures but includes the following: [x] Data Review and interpretation [x] Patient assessment and monitoring of vital signs [x] Documentation [x] Medication orders and management History Interval history: Patient doing well this AM. Remains symptom free. Ventricular rate in 80's on my encounter. Patient asked if she could go home and follow up with her [place] ib[employer] websphere commerce developer as outpatient. I explained to her that her arrythmia could degenerate to a lethal rhythm and eventual cardiac arrest. Thus, the primary and cardiology teams believe it is in her best interest to remain in the hospital until she is able to be transferred to [facility]. Discussed patient case with in house ibm websphere commerce developer Dr. Harmon as well. We are still awaiting bed availability at [facility]. Hospitalist Physical - Physical exam Narrative exam: Physical Exam: VITAL SIGNS: Reviewed. GENERAL: The patient appears normally developed, Vital signs as documented. HEAD: No signs of head trauma. EYES: Pupils are equal. Extraocular motions intact. EARS: Hearing grossly intact. MOUTH: Oropharynx is normal. NECK: No adenopathy, no JVD. CHEST: Chest with clear breath sounds bilaterally. No wheezes, rales, or rhonchi. CARDIAC: Regular rate and rhythm. S1 and S2, without murmurs, gallops, or rubs. VASCULAR: No Edema. Peripheral pulses normal and equal in all extremities. ABDOMEN: Soft, non tender and non distended. No rebound or guarding, and no masses palpated. Bowel Sounds normal. MUSCULOSKELETAL: Good range of motion of all major joints. Extremities without clubbing, cyanosis or edema. NEUROLOGIC EXAM: Alert and oriented x 4. no focal sensory or strength deficits. PSYCHIATRIC: Mood normal. SKIN: detail exam as documented in skin assessment - Constitutional Vitals: Temp Pulse Resp BP Pulse Ox 97.7 F 68 13 138/90 99 10/16/21 04:00 10/16/21 07:14 10/16/21 07:00 10/16/21 07:14 10/16/21 07:56 General appearance: Present: no acute distress, well-nourished HEART Score - HEART Score Age: 45-65 Risk factors: > 3 risk factors or hx of atherosclerotic disease Troponin: Troponin T < 0.010 ng/mL (0.00-0.029) 10/14/21 17:05 Troponin: < normal limit - Critical Actions Critical Actions: 4-6 pts:12-16.6% risk of adverse cardiac event. Should be admitted Results - Labs CBC & Chem 7: 10/15/21 05:06 10/15/21 05:06 Labs: Laboratory Last Values WBC 5.6 K/mm3 (4.5-11.0) 10/15/21 05:06 RBC 4.72 M/mm3 (3.65-5.03) 10/15/21 05:06 Hgb 13.7 gm/dl (10.1-14.3) 10/15/21 05:06 Hct 41.8 % (30.3-42.9) 10/15/21 05:06 MCV 89 fl (79-97) 10/15/21 05:06 MCH 29 pg (28-32) 10/15/21 05:06 MCHC 33 % (30-34) 10/15/21 05:06 RDW 14.7 % (13.2-15.2) 10/15/21 05:06 Plt Count 225 K/mm3 (140-440) 10/15/21 05:06 Lymph % (Auto) 36.9 % (13.4-35.0) H 10/15/21 05:06 [place] % (Auto) 8.8 % (0.0-7.3) H 10/15/21 05:06 Eos % (Auto) 1.6 % (0.0-4.3) 10/15/21 05:06 Baso % (Auto) 0.6 % (0.0-1.8) 10/15/21 05:06 Lymph # (Auto) 2.1 K/mm3 (1.2-5.4) 10/15/21 05:06 [place] # (Auto) 0.5 K/mm3 (0.0-0.8) 10/15/21 05:06 Eos # (Auto) 0.1 K/mm3 (0.0-0.4) 10/15/21 05:06 Baso # (Auto) 0.0 K/mm3 (0.0-0.1) 10/15/21 05:06 Seg Neutrophils % 52.1 % (40.0-70.0) 10/15/21 05:06 Seg Neutrophils # 2.9 K/mm3 (1.8-7.7) 10/15/21 05:06 Sodium 144 mmol/L (137-145) 10/15/21 05:06 Potassium 3.0 mmol/L (3.6-5.0) L 10/15/21 05:06 Chloride 104.7 mmol/L (98-107) 10/15/21 05:06 Carbon Dioxide 27 mmol/L (22-30) 10/15/21 05:06 Anion Gap 15 mmol/L 10/15/21 05:06 BUN 10 mg/dL (7-17) 10/15/21 05:06 Creatinine 0.5 mg/dL (0.6-1.2) L 10/15/21 05:06 Estimated GFR > 60 ml/min 10/15/21 05:06 BUN/Creatinine Ratio 20 % 10/15/21 05:06 Glucose 139 mg/dL (65-100) H 10/15/21 05:06 POC Glucose 120 mg/dL (70-105) H 10/16/21 07:34 Calcium 9.4 mg/dL (8.4-10.2) 10/15/21 05:06 Magnesium 2.00 mg/dL (1.7-2.3) 10/14/21 14:18 Total Bilirubin 0.20 mg/dL (0.1-1.2) 10/15/21 05:06 AST 18 units/L (5-40) 10/15/21 05:06 ALT 16 units/L (7-56) 10/15/21 05:06 Alkaline Phosphatase 74 units/L (35-129) 10/15/21 05:06 Troponin T < 0.010 ng/mL (0.00-0.029) 10/14/21 17:05 Total Protein 6.7 g/dL (6.3-8.2) 10/15/21 05:06 Albumin 4.2 g/dL (3.9-5) 10/15/21 05:06 Albumin/Globulin Ratio 1.7 % 10/15/21 05:06 Coronavirus (PCR) Negative (Negative) 10/15/21 Unknown Perez/IV: Voiding Method Toilet Active Medications - Current Medications Current Medications: Generic Name Dose Route Start Last Admin Trade Name Freq PRN Reason Stop Dose Admin Acetaminophen 650 mg 10/14/21 18:11 Acetaminophen 325 Mg Tab PO Q4H PRN Pain MILD(1-3)/Fever >100.5/CORBIN Amlodipine Besylate 10 mg 10/15/21 10:00 10/15/21 09:02 Amlodipine 10 Mg Tab PO 10 mg DAILY NING Administration Ascorbic Acid 500 mg 10/15/21 10:00 10/15/21 09:43 Ascorbic Acid 500 Mg Tab PO 500 mg DAILY NING Administration Atorvastatin Calcium 10 mg 10/15/21 10:00 10/15/21 09:02 Atorvastatin 10 Mg Tab PO 10 mg DAILY NING Administration Diltiazem HCl 30 mg 10/14/21 19:00 10/16/21 07:14 Diltiazem 30 Mg Tab PO 30 mg Q6H NING Administration Enoxaparin Sodium 40 mg 10/14/21 19:00 10/15/21 09:43 Enoxaparin 40 Mg/0.4 Ml Inj SUB-Q 40 mg QDAY NING Administration Hydromorphone HCl 0.5 mg 10/14/21 18:11 Hydromorphone 1 Mg/1 Ml Inj IV Q3H PRN Pain , Severe (7-10) Amiodarone HCl 360 mg/ 200 mls @ 33.333 mls/hr 10/14/21 15:00 10/15/21 18:14 Dextrose IV 0.5 mg/min DIRECT NING 16.667 mls/hr Administration Protocol 1 MG/MIN Sodium Chloride 1,000 mls @ 75 mls/hr 10/14/21 18:15 10/15/21 21:35 Nacl 0.9% 1000 Ml IV 75 mls/hr DIRECT NING Administration Insulin Glargine 22 units 10/15/21 22:00 10/15/21 21:23 Insulin Glargine 100 Units/Ml SUB-Q 22 units QHS NING Administration Insulin Human Lispro 0 unit 10/15/21 07:30 10/15/21 21:22 Insulin Lispro 100 Unit/Ml SUB-Q Not Given ACHS NING Protocol Losartan Potassium 25 mg 10/15/21 08:00 10/15/21 08:14 Losartan 25 Mg Tab PO 25 mg QDAY@0800 NING Administration Metoprolol Succinate 50 mg 10/15/21 10:00 10/15/21 09:01 Metoprolol Succinate Xl 50 Mg Tab PO 50 mg DAILY NING Administration Ondansetron HCl 4 mg 10/14/21 18:11 Ondansetron 4 Mg/2 Ml Inj IV Q8H PRN Nausea And Vomiting Oxycodone/Acetaminophen 1 tab 10/14/21 18:11 Oxycodone /Acetaminophen 5-325mg Tab PO Q6H PRN Pain, Moderate (4-6) Sodium Chloride 10 ml 10/14/21 22:00 10/15/21 21:20 Sodium Chloride 0.9% 10 Ml Flush Syringe IV 10 ml BID NING Administration Sodium Chloride 10 ml 10/14/21 18:11 Sodium Chloride 0.9% 10 Ml Flush Syringe IV PRN PRN LINE FLUSH
[2021-10-16] MEDS: amLODIPine 10 MG TAB PO SCH (10:16)
[2021-10-16] MEDS: SODIUM CHLORIDE 0.9% 1000 ML 1,000 ML IV SCH ×2 (10:16→22:44)
[2021-10-16] MEDS: METOPROLOL SUCCINATE XL 50 MG TAB PO SCH (10:17)
[2021-10-16] MEDS: ENOXAPARIN 40 MG/0.4 ML INJ SUB-Q SCH (10:17)
[2021-10-16] MEDS: ASCORBIC ACID 500 MG TAB PO SCH (10:17)
[2021-10-16] MEDS: LOSARTAN 25 MG TAB PO SCH (10:17)
[2021-10-16] MEDS: INSULIN LISPRO 100 UNIT/ML SUB-Q SCH ×4 (10:18→21:19)
--- NOTE | 2021-10-16 12:35 | Progress Note ---
Assessment and Plan - Patient Problems (1) Sustained ventricular tachycardia Current Visit: Yes Status: Acute Plan to address problem: We will continue Toprol and suppressive therapy with amiodarone, based on her extensive prior cardiac work-up, the patient needs to be transferred to her doctors at [facility] for further evaluation and management. I have contacted [facility] electrophysiology service, Dr. Saxena has accepted her in transfer. She is stable for transfer to telemetry unit until her transfer to [facility]. Subjective Date of service: 10/16/21 Interval history: Patient is comfortable, no cardiac complaints. On director community health nursing she has a stable sinus rhythm, ventricular ectopy is rare. Objective Vital Signs Temp Pulse Pulse Resp BP Pulse Ox 10/16/21 10:17 97 H 137/91 10/16/21 10:16 92 H 137/91 10/16/21 08:00 98.4 F 10/16/21 07:56 99 10/16/21 07:14 68 138/90 10/16/21 07:00 65 13 138/90 99 10/16/21 06:31 64 17 113/80 100 10/16/21 06:00 72 17 113/80 97 10/16/21 05:31 74 14 121/91 96 10/16/21 05:00 64 9 L 121/91 95 10/16/21 04:31 66 13 132/83 98 10/16/21 04:25 71 10/16/21 04:00 97.7 F 67 71 16 115/80 93 10/16/21 03:30 67 20 115/80 97 10/16/21 03:01 64 15 115/80 99 10/16/21 02:31 69 20 110/65 100 10/16/21 02:00 75 15 110/65 97 10/16/21 01:56 87 109/79 10/16/21 01:31 56 L 18 109/79 94 10/16/21 01:00 63 17 109/79 97 10/16/21 00:40 69 10/16/21 00:31 54 L 17 114/70 93 10/16/21 00:01 98 H 17 114/70 95 10/16/21 00:00 98.2 F 98 H 17 95 10/15/21 23:31 81 19 121/73 99 10/15/21 23:00 67 17 121/73 98 10/15/21 22:31 90 10 L 131/83 99 10/15/21 22:00 69 15 131/83 98 10/15/21 21:41 99 10/15/21 21:31 97 H 23 129/80 97 10/15/21 21:19 68 129/80 10/15/21 21:00 63 14 129/80 99 10/15/21 20:30 106 H 27 H 118/88 100 10/15/21 20:05 105 H 10/15/21 20:01 95 H 13 127/95 10/15/21 20:00 97.6 F 10/15/21 19:31 59 L 21 127/95 98 10/15/21 19:01 103 H 17 127/95 94 10/15/21 18:31 96 H 25 H 127/95 97 10/15/21 18:09 113 H 15 127/95 100 10/15/21 18:01 136 H 16 127/95 99 10/15/21 17:00 112 H 15 127/95 100 10/15/21 16:01 109 H 21 140/71 96 10/15/21 16:00 98.6 F 10/15/21 15:01 78 20 143/79 100 10/15/21 14:00 108 H 24 119/87 97 10/15/21 13:00 103 H 17 116/80 98 10/15/21 12:56 100 - Physical Examination General: Appears Well, No Apparent Distress HEENT: Positive: PERRL Neck: Positive: neck supple Cardiac: Positive: Reg Rate and Rhythm Lungs: Positive: clear to auscultation Neuro: Positive: Grossly Intact Abdomen: Positive: Soft Skin: Positive: Clear Extremities: Absent: edema - Imaging and Cardiology EKG: report reviewed (Ventricular tachycardia with heart rate of 160/min IVCD)
[2021-10-16] MEDS: ASPIRIN EC 81 MG TAB PO SCH (14:45)
[2021-10-16] MEDS: AMIODARONE 200 MG TAB PO SCH ×2 (14:45→20:59)
[2021-10-16] MEDS: INSULIN GLARGINE 100 UNITS/ML SUB-Q SCH (21:19)
--- NOTE | 2021-10-17 08:05 | Progress Note ---
Assessment and Plan Assessment and plan: HPI: 55-year-old -Y[place]i female with history of insulin-dependent diabetes, hypertension, hyperlipidemia and vitamin D deficiency comes in for palpitations and chest tightness since 9 AM. Apparently he had the symptoms before but did not see a molder floor at that time patient felt dizzy and lightheaded. Chest tightness is intermittent. Precipitated by palpitations. EMS was called and patient was given amiodarone 150 mg. Route of administration is not known. No fever or chills. No diaphoresis. No shortness of breath. Patient says her heart is fine and wanted to leave AMA after couple hours. ED course--- patient undergo signed out AMA.. Patient was explained the disease process and the pathophysiology after which he decided to stay. Patient was started on amiodarone IV and oral diltiazem. Patient was in V. tach with a heart rate of 160. Intermittently changed to sinus rhythm with frequent PVCs. Admitted to IMCU for further management and observation for ventricular tachycardia. Hospital Course: 10/15: Currently on toprol and amiodorone for VT. Ventricular rate fluctuates between 80-120s. Based on extensive work up in past, cardiology recommends transfer. Will coordinate with them for arrangements. 10/16 : remains on suppressive therapy. Still waiting for bed at [facility] for transfer so patient can get EP services with her molder floor there. 10/17: Transfer accepted by [facility] cardiology service. Pending bed availability. Assessment and Plan: # Ventricular tachycardia Current Visit: Yes Status: Acute Plan to address problem: Patient initiated on IV amiodarone and oral diltiazem 30 mg every 6 hours IV Lopressor given Cardiology consult requested Patient responding to amiodarone drip Defer to cardiology regarding further management Will defer to [facility], per note symptoms date back to 2010, had cardiac ca th and EP study which were normla. Cardiac MR was also reported to be normal. EPS did not induce VT , patient was subsequently initiated on metoprolol. # Acute coronary syndrome Current Visit: Yes Status: Acute Plan to address problem: Ventricular rate induced Troponins are negative x 2 Lexiscan deferred to cardiology # Hypertension Current Visit: Yes Status: Chronic Qualifiers: Hypertension type: primary hypertension Qualified Code(s): I10 - Essential (primary) hypertension Plan to address problem: Continue home antihypertensives: metoprolol, amlodipine. # IDDM (insulin dependent diabetes mellitus) Current Visit: Yes Status: Chronic Plan to address problem: Hold home metformin Lantus 22 units qhs + SSI Continue home insulin and coverage Check hemoglobin A1c # Vitamin D deficiency Current Visit: Yes Status: Chronic Plan to address problem: Hold vitamin D for now # Hypokalemia Current Visit: Yes Status: Acute Plan to address problem: Supplemented mg 2.0 ERP # Obesity (BMI 30-39.9) Current Visit: Yes Status: Chronic Plan to address problem: Patient to be referred to Dr. Cohen-bariatric surgeon at the time of discharge # DVT prophylaxis Current Visit: Yes Status: Acute Plan to address problem: On anticoagulation GI prophylaxis (9) Advance care planning Current Visit: Yes Status: Acute Plan to address problem: Patient and family heart disease education. Care plan discussed. Diagnosis discussed, prognosis discussed. Patient is full code. Patient and family acknowledged understanding and agreement with care plan. +30 minutes. The high probability of a clinically significant, sudden or life threatening deterioration of the [cardiac] system(s) required my full and direct attention, intervention and personal management. The aggregate critical care time was [60] minutes. This time is in addition to time spent performing reported procedures but includes the following: [x] Data Review and interpretation [x] Patient assessment and monitoring of vital signs [x] Documentation [x] Medication orders and management History Interval history: No acute complaints this morning. Ventricular rate in 60's on bedside monitor. Hospitalist Physical - Physical exam Narrative exam: Physical Exam: VITAL SIGNS: Reviewed. GENERAL: The patient appears normally developed, Vital signs as documented. HEAD: No signs of head trauma. EYES: Pupils are equal. Extraocular motions intact. EARS: Hearing grossly intact. MOUTH: Oropharynx is normal. NECK: No adenopathy, no JVD. CHEST: Chest with clear breath sounds bilaterally. No wheezes, rales, or rhonchi. CARDIAC: Regular rate and rhythm. S1 and S2, without murmurs, gallops, or rubs. VASCULAR: No Edema. Peripheral pulses normal and equal in all extremities. ABDOMEN: Soft, non tender and non distended. No rebound or guarding, and no masses palpated. Bowel Sounds normal. MUSCULOSKELETAL: Good range of motion of all major joints. Extremities without clubbing, cyanosis or edema. NEUROLOGIC EXAM: Alert and oriented x 4. no focal sensory or strength deficits. PSYCHIATRIC: Mood normal. SKIN: detail exam as documented in skin assessment - Constitutional Vitals: Temp Pulse Resp BP Pulse Ox 98.6 F 66 13 137/84 97 10/17/21 03:59 10/17/21 05:22 10/17/21 05:00 10/17/21 05:00 10/17/21 05:00 General appearance: Present: no acute distress, well-nourished HEART Score - HEART Score Age: 45-65 Risk factors: > 3 risk factors or hx of atherosclerotic disease Troponin: Troponin T < 0.010 ng/mL (0.00-0.029) 10/14/21 17:05 Troponin: < normal limit - Critical Actions Critical Actions: 4-6 pts:12-16.6% risk of adverse cardiac event. Should be admitted Results - Labs CBC & Chem 7: 10/15/21 05:06 10/15/21 05:06 Labs: Laboratory Last Values WBC 5.6 K/mm3 (4.5-11.0) 10/15/21 05:06 RBC 4.72 M/mm3 (3.65-5.03) 10/15/21 05:06 Hgb 13.7 gm/dl (10.1-14.3) 10/15/21 05:06 Hct 41.8 % (30.3-42.9) 10/15/21 05:06 MCV 89 fl (79-97) 10/15/21 05:06 MCH 29 pg (28-32) 10/15/21 05:06 MCHC 33 % (30-34) 10/15/21 05:06 RDW 14.7 % (13.2-15.2) 10/15/21 05:06 Plt Count 225 K/mm3 (140-440) 10/15/21 05:06 Lymph % (Auto) 36.9 % (13.4-35.0) H 10/15/21 05:06 [place] % (Auto) 8.8 % (0.0-7.3) H 10/15/21 05:06 Eos % (Auto) 1.6 % (0.0-4.3) 10/15/21 05:06 Baso % (Auto) 0.6 % (0.0-1.8) 10/15/21 05:06 Lymph # (Auto) 2.1 K/mm3 (1.2-5.4) 10/15/21 05:06 [place] # (Auto) 0.5 K/mm3 (0.0-0.8) 10/15/21 05:06 Eos # (Auto) 0.1 K/mm3 (0.0-0.4) 10/15/21 05:06 Baso # (Auto) 0.0 K/mm3 (0.0-0.1) 10/15/21 05:06 Seg Neutrophils % 52.1 % (40.0-70.0) 10/15/21 05:06 Seg Neutrophils # 2.9 K/mm3 (1.8-7.7) 10/15/21 05:06 Sodium 144 mmol/L (137-145) 10/15/21 05:06 Potassium 3.0 mmol/L (3.6-5.0) L 10/15/21 05:06 Chloride 104.7 mmol/L (98-107) 10/15/21 05:06 Carbon Dioxide 27 mmol/L (22-30) 10/15/21 05:06 Anion Gap 15 mmol/L 10/15/21 05:06 BUN 10 mg/dL (7-17) 10/15/21 05:06 Creatinine 0.5 mg/dL (0.6-1.2) L 10/15/21 05:06 Estimated GFR > 60 ml/min 10/15/21 05:06 BUN/Creatinine Ratio 20 % 10/15/21 05:06 Glucose 139 mg/dL (65-100) H 10/15/21 05:06 POC Glucose 106 mg/dL (70-105) H 10/17/21 07:37 Calcium 9.4 mg/dL (8.4-10.2) 10/15/21 05:06 Magnesium 2.00 mg/dL (1.7-2.3) 10/14/21 14:18 Total Bilirubin 0.20 mg/dL (0.1-1.2) 10/15/21 05:06 AST 18 units/L (5-40) 10/15/21 05:06 ALT 16 units/L (7-56) 10/15/21 05:06 Alkaline Phosphatase 74 units/L (35-129) 10/15/21 05:06 Troponin T < 0.010 ng/mL (0.00-0.029) 10/14/21 17:05 Total Protein 6.7 g/dL (6.3-8.2) 10/15/21 05:06 Albumin 4.2 g/dL (3.9-5) 10/15/21 05:06 Albumin/Globulin Ratio 1.7 % 10/15/21 05:06 Nasal Screen MRSA (PCR) Positive (Negative) 10/15/21 05:13 Coronavirus (PCR) Negative (Negative) 10/15/21 Unknown Perez/IV: Voiding Method Toilet Active Medications - Current Medications Current Medications: Generic Name Dose Route Start Last Admin Trade Name Freq PRN Reason Stop Dose Admin Acetaminophen 650 mg 10/14/21 18:11 Acetaminophen 325 Mg Tab PO Q4H PRN Pain MILD(1-3)/Fever >100.5/CORBIN Amiodarone HCl 200 mg 10/16/21 13:00 10/16/21 20:59 Amiodarone 200 Mg Tab PO 200 mg BID NING Administration Amlodipine Besylate 10 mg 10/15/21 10:00 10/16/21 10:16 Amlodipine 10 Mg Tab PO 10 mg DAILY NING Administration Ascorbic Acid 500 mg 10/15/21 10:00 10/16/21 10:17 Ascorbic Acid 500 Mg Tab PO 500 mg DAILY NING Administration Aspirin 81 mg 10/16/21 13:00 10/16/21 14:45 Aspirin Ec 81 Mg Tab PO 81 mg QDAY NING Administration Atorvastatin Calcium 10 mg 10/15/21 10:00 10/16/21 10:17 Atorvastatin 10 Mg Tab PO 10 mg DAILY NING Administration Enoxaparin Sodium 40 mg 10/14/21 19:00 10/16/21 10:17 Enoxaparin 40 Mg/0.4 Ml Inj SUB-Q 40 mg QDAY NING Administration Hydromorphone HCl 0.5 mg 10/14/21 18:11 Hydromorphone 1 Mg/1 Ml Inj IV Q3H PRN Pain , Severe (7-10) Sodium Chloride 1,000 mls @ 75 mls/hr 10/14/21 18:15 10/16/21 22:44 Nacl 0.9% 1000 Ml IV 75 mls/hr DIRECT NING Administration Insulin Glargine 22 units 10/15/21 22:00 10/16/21 21:19 Insulin Glargine 100 Units/Ml SUB-Q 22 units QHS NING Administration Insulin Human Lispro 0 unit 10/15/21 07:30 10/16/21 21:19 Insulin Lispro 100 Unit/Ml SUB-Q 2 unit ACHS NING Administration Protocol Losartan Potassium 25 mg 10/15/21 08:00 10/16/21 10:17 Losartan 25 Mg Tab PO 25 mg QDAY@0800 NING Administration Metoprolol Succinate 50 mg 10/15/21 10:00 10/16/21 10:17 Metoprolol Succinate Xl 50 Mg Tab PO 50 mg DAILY NING Administration Ondansetron HCl 4 mg 10/14/21 18:11 Ondansetron 4 Mg/2 Ml Inj IV Q8H PRN Nausea And Vomiting Oxycodone/Acetaminophen 1 tab 10/14/21 18:11 Oxycodone /Acetaminophen 5-325mg Tab PO Q6H PRN Pain, Moderate (4-6) Sodium Chloride 10 ml 10/14/21 22:00 10/16/21 20:59 Sodium Chloride 0.9% 10 Ml Flush Syringe IV 10 ml BID NING Administration Sodium Chloride 10 ml 10/14/21 18:11 Sodium Chloride 0.9% 10 Ml Flush Syringe IV PRN PRN LINE FLUSH
[2021-10-17] MEDS: LOSARTAN 25 MG TAB PO SCH (09:09)
[2021-10-17] MEDS: amLODIPine 10 MG TAB PO SCH (09:10)
[2021-10-17] MEDS: METOPROLOL SUCCINATE XL 50 MG TAB PO SCH (09:10)
[2021-10-17] MEDS: ENOXAPARIN 40 MG/0.4 ML INJ SUB-Q SCH (09:11)
[2021-10-17] MEDS: ASCORBIC ACID 500 MG TAB PO SCH (09:11)
[2021-10-17] MEDS: ASPIRIN EC 81 MG TAB PO SCH (09:17)
[2021-10-17] MEDS: AMIODARONE 200 MG TAB PO SCH ×2 (10:20→22:39)
--- NOTE | 2021-10-17 11:41 | Progress Note ---
Assessment and Plan 1. Sustained ventricular tachycardia 2. Essential hypertension 3. Type 2 diabetes mellitus 4. Hyperlipidemia Plan. Patient is currently stable and in sinus rhythm continue present antiarrhythmic medication history of normal coronary arteries by cardiac cath with normal left ventricular ejection fraction both on echo and LV gram. As per Dr. Wood's note patient to be transferred to [facility] electrophysiology for further evaluation for left ventricular mapping and possibly ventricular V. tach ablation Subjective Date of service: 10/17/21 Interval history: No cardiac symptoms Objective Vital Signs Temp Pulse Pulse Resp BP Pulse Ox 10/17/21 11:00 64 15 118/85 100 10/17/21 10:31 59 L 17 131/86 98 10/17/21 10:00 68 18 131/86 99 10/17/21 09:31 80 12 118/67 100 10/17/21 09:10 64 118/67 10/17/21 09:09 64 118/67 10/17/21 09:00 57 L 17 118/67 98 10/17/21 08:31 72 16 129/92 97 10/17/21 08:00 98.5 F 67 19 129/92 100 10/17/21 07:31 83 20 145/82 98 10/17/21 07:01 71 13 145/82 100 10/17/21 06:31 69 17 139/85 98 10/17/21 06:00 59 L 11 L 139/85 99 10/17/21 05:31 58 L 17 137/84 97 10/17/21 05:22 66 10/17/21 05:00 68 13 137/84 97 10/17/21 04:31 60 20 135/72 97 10/17/21 04:01 59 L 20 135/72 97 10/17/21 04:00 99 10/17/21 03:59 98.6 F 10/17/21 03:31 60 16 152/94 98 10/17/21 03:00 66 16 152/94 100 10/17/21 02:31 65 14 139/82 100 10/17/21 02:00 58 L 17 139/82 97 10/17/21 01:31 60 16 128/83 97 10/17/21 01:00 64 19 128/83 99 10/17/21 00:31 58 L 17 135/88 100 10/17/21 00:00 98.6 F 58 L 13 135/88 99 10/16/21 23:35 65 17 146/91 98 10/16/21 23:31 69 17 146/91 97 10/16/21 23:01 72 12 146/91 100 10/16/21 22:31 70 14 141/91 99 10/16/21 22:00 63 15 141/91 98 10/16/21 21:31 66 22 133/75 99 10/16/21 21:00 67 22 133/75 100 10/16/21 20:45 68 10/16/21 20:31 153/100 99 10/16/21 20:00 98.8 F 68 10 L 153/100 99 10/16/21 19:31 74 148/90 99 10/16/21 19:01 123 H 148/90 99 10/16/21 18:31 101 H 26 H 113/66 97 10/16/21 18:01 101 H 16 113/66 100 10/16/21 17:31 78 26 H 147/99 97 10/16/21 17:01 85 25 H 147/99 98 10/16/21 16:31 152 H 34 H 136/91 99 10/16/21 16:01 109 H 20 136/91 96 10/16/21 16:00 98.6 F 80 74 18 99 10/16/21 15:31 108 H 24 121/65 97 10/16/21 15:01 123 H 29 H 121/65 96 10/16/21 14:31 89 20 132/83 99 10/16/21 14:01 96 H 16 121/60 97 10/16/21 13:31 92 H 19 121/60 97 10/16/21 13:01 101 H 21 106/68 97 10/16/21 12:31 66 23 106/68 98 10/16/21 12:01 101 H 13 127/84 97 10/16/21 12:00 98.9 F 76 74 16 96 - Physical Examination General: Appears Well, No Apparent Distress HEENT: Positive: PERRL Neck: Positive: neck supple Cardiac: Positive: Regular Rate, S1/S2 Lungs: Positive: clear to auscultation, No Wheeze, Rales, Rhonchi Neuro: Positive: Grossly Intact Abdomen: Positive: Soft Skin: Positive: Clear Extremities: Absent: edema - Imaging and Cardiology EKG: report reviewed (Ventricular tachycardia with heart rate of 160/min IVCD)
[2021-10-17] MEDS: INSULIN LISPRO 100 UNIT/ML SUB-Q SCH ×4 (11:47→22:42)
[2021-10-17] MEDS: SODIUM CHLORIDE 0.9% 1000 ML 1,000 ML IV SCH (11:48)
[2021-10-17 15:03] LABS: Blood Urea Nitrogen 9 mg/dL (7-17); Calcium 9.8 mg/dL (8.4-10.2); Hemolysis Index 12
[2021-10-17 15:05] LABS: BUN/Creatinine Ratio 13
[2021-10-17] MEDS: INSULIN GLARGINE 100 UNITS/ML SUB-Q SCH (22:39)
[2021-10-18] MEDS: SODIUM CHLORIDE 0.9% 1000 ML 1,000 ML IV SCH ×2 (01:46→15:00)
--- NOTE | 2021-10-18 08:03 | Progress Note ---
Assessment and Plan Assessment and plan: HPI: 55-year-old -[place] female with history of insulin-dependent diabetes, hypertension, hyperlipidemia and vitamin D deficiency comes in for palpitations and chest tightness since 9 AM. Apparently he had the symptoms before but did not see a safety officer at that time patient felt dizzy and lightheaded. Chest tightness is intermittent. Precipitated by palpitations. EMS was called and patient was given amiodarone 150 mg. Route of administration is not known. No fever or chills. No diaphoresis. No shortness of breath. Patient says her heart is fine and wanted to leave AMA after couple hours. ED course--- patient undergo signed out AMA.. Patient was explained the disease process and the pathophysiology after which he decided to stay. Patient was started on amiodarone IV and oral diltiazem. Patient was in V. tach with a heart rate of 160. Intermittently changed to sinus rhythm with frequent PVCs. Admitted to IMCU for further management and observation for ventricular tachycardia. Hospital Course: 10/15: Currently on toprol and amiodorone for VT. Ventricular rate fluctuates between 80-120s. Based on extensive work up in past, cardiology recommends transfer. Will coordinate with them for arrangements. 10/16 : remains on suppressive therapy. Still waiting for bed at [facility] for transfer so patient can get EP services with her safety officer there. 10/17: Transfer accepted by [facility] cardiology service. Pending bed availability. 10/08: Awaiting transfer. Pending bed availability. Assessment and Plan: # Ventricular tachycardia Current Visit: Yes Status: Acute Plan to address problem: Patient initiated on IV amiodarone and oral diltiazem 30 mg every 6 hours IV Lopressor given Cardiology consult requested Patient responding to amiodarone drip Defer to cardiology regarding further management Will defer to [facility], per note symptoms date back to 2010, had cardiac cath and EP study which were normla. Cardiac MR was also reported to be normal. EPS did not induce VT , patient was subsequently initiated on metoprolol. # Acute coronary syndrome Current Visit: Yes Status: Acute Plan to address problem: Ventricular rate induced Troponins are negative x 2 Lexiscan deferred to cardiology # Hypertension Current Visit: Yes Status: Chronic Qualifiers: Hypertension type: primary hypertension Qualified Code(s): I10 - Essential (primary) hypertension Plan to address problem: Continue home antihypertensives: metoprolol, amlodipine. # IDDM (insulin dependent diabetes mellitus) Current Visit: Yes Status: Chronic Plan to address problem: Hold home metformin Lantus 22 units qhs + SSI Continue home insulin and coverage Check hemoglobin A1c # Vitamin D deficiency Current Visit: Yes Status: Chronic Plan to address problem: Hold vitamin D for now # Hypokalemia Current Visit: Yes Status: Acute Plan to address problem: Supplemented mg 2.0 ERP # Obesity (BMI 30-39.9) Current Visit: Yes Status: Chronic Plan to address problem: Patient to be referred to Dr. Cohen-bariatric surgeon at the time of discharge # DVT prophylaxis Current Visit: Yes Status: Acute Plan to address problem: On anticoagulation GI prophylaxis (9) Advance care planning Current Visit: Yes Status: Acute Plan to address problem: Patient and family heart disease education. Care plan discussed. Diagnosis discussed, prognosis discussed. Patient is full code. Patient and family acknowledged understanding and agreement with care plan. +30 minutes. The high probability of a clinically significant, sudden or life threatening deterioration of the [cardiac] system(s) required my full and direct attention, intervention and personal management. The aggregate critical care time was [60] minutes. This time is in addition to time spent performing reported procedures but includes the following: [x] Data Review and interpretation [x] Patient assessment and monitoring of vital signs [x] Documentation [x] Medication orders and management History Interval history: No acute complaints this morning. Hospitalist Physical - Physical exam Narrative exam: Physical Exam: VITAL SIGNS: Reviewed. GENERAL: The patient appears normally developed, Vital signs as documented. HEAD: No signs of head trauma. EYES: Pupils are equal. Extraocular motions intact. EARS: Hearing grossly intact. MOUTH: Oropharynx is normal. NECK: No adenopathy, no JVD. CHEST: Chest with clear breath sounds bilaterally. No wheezes, rales, or rhonchi. CARDIAC: Regular rate and rhythm. S1 and S2, without murmurs, gallops, or rubs. VASCULAR: No Edema. Peripheral pulses normal and equal in all extremities. ABDOMEN: Soft, non tender and non distended. No rebound or guarding, and no masses palpated. Bowel Sounds normal. MUSCULOSKELETAL: Good range of motion of all major joints. Extremities without clubbing, cyanosis or edema. NEUROLOGIC EXAM: Alert and oriented x 4. no focal sensory or strength deficits. PSYCHIATRIC: Mood normal. SKIN: detail exam as documented in skin assessment - Constitutional Vitals: Temp Pulse Resp BP Pulse Ox 97.6 F 68 14 134/80 98 10/18/21 04:00 10/18/21 05:30 10/18/21 05:30 10/18/21 05:30 10/18/21 05:30 General appearance: Present: no acute distress, well-nourished HEART Score - HEART Score Age: 45-65 Risk factors: > 3 risk factors or hx of atherosclerotic disease Troponin: Troponin T < 0.010 ng/mL (0.00-0.029) 10/14/21 17:05 Troponin: < normal limit - Critical Actions Critical Actions: 4-6 pts:12-16.6% risk of adverse cardiac event. Should be admitted Results - Labs CBC & Chem 7: 10/15/21 05:06 10/17/21 13:31 Labs: Laboratory Last Values WBC 5.6 K/mm3 (4.5-11.0) 10/15/21 05:06 RBC 4.72 M/mm3 (3.65-5.03) 10/15/21 05:06 Hgb 13.7 gm/dl (10.1-14.3) 10/15/21 05:06 Hct 41.8 % (30.3-42.9) 10/15/21 05:06 MCV 89 fl (79-97) 10/15/21 05:06 MCH 29 pg (28-32) 10/15/21 05:06 MCHC 33 % (30-34) 10/15/21 05:06 RDW 14.7 % (13.2-15.2) 10/15/21 05:06 Plt Count 225 K/mm3 (140-440) 10/15/21 05:06 Lymph % (Auto) 36.9 % (13.4-35.0) H 10/15/21 05:06 [place] % (Auto) 8.8 % (0.0-7.3) H 10/15/21 05:06 Eos % (Auto) 1.6 % (0.0-4.3) 10/15/21 05:06 Baso % (Auto) 0.6 % (0.0-1.8) 10/15/21 05:06 Lymph # (Auto) 2.1 K/mm3 (1.2-5.4) 10/15/21 05:06 [place] # (Auto) 0.5 K/mm3 (0.0-0.8) 10/15/21 05:06 Eos # (Auto) 0.1 K/mm3 (0.0-0.4) 10/15/21 05:06 Baso # (Auto) 0.0 K/mm3 (0.0-0.1) 10/15/21 05:06 Seg Neutrophils % 52.1 % (40.0-70.0) 10/15/21 05:06 Seg Neutrophils # 2.9 K/mm3 (1.8-7.7) 10/15/21 05:06 Sodium 136 mmol/L (137-145) L D 10/17/21 13:31 Potassium 3.1 mmol/L (3.6-5.0) L 10/17/21 13:31 Chloride 99.3 mmol/L (98-107) 10/17/21 13:31 Carbon Dioxide 26 mmol/L (22-30) 10/17/21 13:31 Anion Gap 14 mmol/L 10/17/21 13:31 BUN 9 mg/dL (7-17) 10/17/21 13:31 Creatinine 0.7 mg/dL (0.6-1.2) 10/17/21 13:31 Estimated GFR > 60 ml/min 10/17/21 13:31 BUN/Creatinine Ratio 13 % 10/17/21 13:31 Glucose 110 mg/dL (65-100) H 10/17/21 13:31 POC Glucose 105 mg/dL (70-105) 10/18/21 07:11 Calcium 9.8 mg/dL (8.4-10.2) 10/17/21 13:31 Magnesium 2.00 mg/dL (1.7-2.3) 10/14/21 14:18 Total Bilirubin 0.20 mg/dL (0.1-1.2) 10/15/21 05:06 AST 18 units/L (5-40) 10/15/21 05:06 ALT 16 units/L (7-56) 10/15/21 05:06 Alkaline Phosphatase 74 units/L (35-129) 10/15/21 05:06 Troponin T < 0.010 ng/mL (0.00-0.029) 10/14/21 17:05 Total Protein 6.7 g/dL (6.3-8.2) 10/15/21 05:06 Albumin 4.2 g/dL (3.9-5) 10/15/21 05:06 Albumin/Globulin Ratio 1.7 % 10/15/21 05:06 Nasal Screen MRSA (PCR) Positive (Negative) 10/15/21 05:13 Coronavirus (PCR) Negative (Negative) 10/15/21 Unknown Peerz/IV: Voiding Method Toilet Active Medications - Current Medications Current Medications: Generic Name Dose Route Start Last Admin Trade Name Freq PRN Reason Stop Dose Admin Acetaminophen 650 mg 10/14/21 18:11 Acetaminophen 325 Mg Tab PO Q4H PRN Pain MILD(1-3)/Fever >100.5/CORBIN Amiodarone HCl 200 mg 10/16/21 13:00 10/17/21 22:39 Amiodarone 200 Mg Tab PO 200 mg BID NING Administration Amlodipine Besylate 10 mg 10/15/21 10:00 10/17/21 09:10 Amlodipine 10 Mg Tab PO 10 mg DAILY NING Administration Ascorbic Acid 500 mg 10/15/21 10:00 10/17/21 09:11 Ascorbic Acid 500 Mg Tab PO 500 mg DAILY NING Administration Aspirin 81 mg 10/16/21 13:00 10/17/21 09:17 Aspirin Ec 81 Mg Tab PO 81 mg QDAY NING Administration Atorvastatin Calcium 10 mg 10/15/21 10:00 10/17/21 09:11 Atorvastatin 10 Mg Tab PO 10 mg DAILY NING Administration Enoxaparin Sodium 40 mg 10/14/21 19:00 10/17/21 09:11 Enoxaparin 40 Mg/0.4 Ml Inj SUB-Q 40 mg QDAY NING Administration Hydromorphone HCl 0.5 mg 10/14/21 18:11 Hydromorphone 1 Mg/1 Ml Inj IV Q3H PRN Pain , Severe (7-10) Sodium Chloride 1,000 mls @ 75 mls/hr 10/14/21 18:15 10/18/21 01:46 Nacl 0.9% 1000 Ml IV 75 mls/hr DIRECT NING Administration Insulin Glargine 22 units 10/15/21 22:00 10/17/21 22:39 Insulin Glargine 100 Units/Ml SUB-Q 22 units QHS NING Administration Insulin Human Lispro 0 unit 10/15/21 07:30 10/17/21 22:42 Insulin Lispro 100 Unit/Ml SUB-Q Not Given ACHS [facility] Protocol Losartan Potassium 25 mg 10/15/21 08:00 10/17/21 09:09 Losartan 25 Mg Tab PO 25 mg QDAY@0800 [facility] Administration Metoprolol Succinate 50 mg 10/15/21 10:00 10/17/21 09:10 Metoprolol Succinate Xl 50 Mg Tab PO 50 mg DAILY NING Administration Ondansetron HCl 4 mg 10/14/21 18:11 Ondansetron 4 Mg/2 Ml Inj IV Q8H PRN Nausea And Vomiting Oxycodone/Acetaminophen 1 tab 10/14/21 18:11 10/18/21 01:47 Oxycodone /Acetaminophen 5-325mg Tab PO 1 tab Q6H PRN Administration Pain, Moderate (4-6) Sodium Chloride 10 ml 10/14/21 22:00 10/17/21 09:23 Sodium Chloride 0.9% 10 Ml Flush Syringe IV 10 ml BID NING Administration Sodium Chloride 10 ml 10/14/21 18:11 Sodium Chloride 0.9% 10 Ml Flush Syringe IV PRN PRN LINE FLUSH
[2021-10-18] MEDS: INSULIN LISPRO 100 UNIT/ML SUB-Q SCH ×2 (08:57→15:00)
[2021-10-18] MEDS: LOSARTAN 25 MG TAB PO SCH (08:58)
[2021-10-18] MEDS: AMIODARONE 200 MG TAB PO SCH ×2 (09:00→22:34)
[2021-10-18] MEDS: METOPROLOL SUCCINATE XL 50 MG TAB PO SCH (09:00)
[2021-10-18] MEDS: amLODIPine 10 MG TAB PO SCH (09:00)
[2021-10-18] MEDS: ASPIRIN EC 81 MG TAB PO SCH (09:01)
[2021-10-18] MEDS: ASCORBIC ACID 500 MG TAB PO SCH (09:01)
[2021-10-18] MEDS: ENOXAPARIN 40 MG/0.4 ML INJ SUB-Q SCH (09:01)
--- NOTE | 2021-10-18 11:01 | Progress Note ---
Assessment and Plan 1. Sustained ventricular tachycardia 2. Essential hypertension 3. Type 2 diabetes mellitus 4. Hyperlipidemia Plan. Patient is currently stable and in sinus rhythm continue present antiarrhythmic medication history of normal coronary arteries by cardiac cath with normal left ventricular ejection fraction both on echo and LV gram. As per Dr. Harmon's note patient to be transferred to [facility] electrophysiology for further evaluation for left ventricular mapping and possibly ventricular V. tach ablation Subjective Date of service: 10/18/21 Interval history: No cardiac symptoms Objective Vital Signs Temp Pulse Pulse Pulse Resp BP Pulse Ox 10/18/21 09:00 84 159/92 10/18/21 08:58 82 156/91 10/18/21 05:30 68 14 134/80 98 10/18/21 05:00 57 L 13 164/70 98 10/18/21 04:30 54 L 14 164/70 98 10/18/21 04:00 97.6 F 55 L 68 14 131/87 91 10/18/21 03:30 53 L 14 131/87 93 10/18/21 03:00 60 14 153/98 96 10/18/21 02:30 83 21 153/98 99 10/18/21 02:00 87 24 150/99 97 10/18/21 01:30 69 20 150/99 99 10/18/21 01:00 69 16 162/95 100 10/18/21 00:30 63 13 162/95 98 10/18/21 00:00 98.2 F 70 65 24 140/90 99 10/17/21 23:30 73 24 140/90 98 10/17/21 23:00 85 143/94 98 10/17/21 22:30 71 143/94 97 10/17/21 22:00 70 167/86 99 10/17/21 21:30 76 167/86 93 10/17/21 21:08 58 L 167/86 95 10/17/21 21:00 65 165/96 99 10/17/21 20:30 66 165/96 96 10/17/21 20:00 97.7 F 76 66 165/96 99 10/17/21 19:30 65 146/87 97 10/17/21 19:00 73 10 L 146/87 96 10/17/21 18:30 80 27 H 140/87 97 10/17/21 18:01 77 21 140/87 99 10/17/21 17:31 81 15 163/104 100 10/17/21 17:01 91 H 14 163/104 98 10/17/21 16:40 138/65 10/17/21 16:31 77 15 185/155 99 10/17/21 16:00 78 72 72 185/155 97 10/17/21 15:31 70 22 175/90 98 10/17/21 15:01 67 16 175/90 97 10/17/21 14:31 72 23 135/84 98 10/17/21 14:00 69 16 135/84 99 10/17/21 13:31 71 17 133/74 98 10/17/21 13:00 63 22 133/74 98 10/17/21 12:31 74 20 146/91 98 10/17/21 12:00 74 72 72 13 118/85 98 10/17/21 11:31 63 18 118/85 96 - Physical Examination General: Appears Well, No Apparent Distress HEENT: Positive: PERRL Neck: Positive: neck supple Cardiac: Positive: Reg Rate and Rhythm, S1/S2. Negative: S3, S4 Lungs: Positive: clear to auscultation, No Wheeze, Rales, Rhonchi Neuro: Positive: Grossly Intact Abdomen: Positive: Soft Skin: Positive: Clear Extremities: Absent: edema - Labs and Meds Comprehensive Metabolic Panel 10/17/21 Range/Units 13:31 Sodium 136 L D (137-145) mmol/L Potassium 3.1 L (3.6-5.0) mmol/L Chloride 99.3 (98-107) mmol/L Carbon Dioxide 26 (22-30) mmol/L BUN 9 (7-17) mg/dL Creatinine 0.7 (0.6-1.2) mg/dL Glucose 110 H (65-100) mg/dL Calcium 9.8 (8.4-10.2) mg/dL - Imaging and Cardiology EKG: report reviewed (Ventricular tachycardia with heart rate of 160/min IVCD)
[2021-10-18] MEDS: INSULIN GLARGINE 100 UNITS/ML SUB-Q SCH (22:34)
[2021-10-18 23:05] VITALS: BP 173/101
--- NOTE | 2021-10-20 00:09 | Discharge Summary ---
Providers - Providers Date of Admission: 10/14/21 14:07 Date of discharge: 10/18/21 Attending physician: CEE MATTHEWS MD 10/14/21 18:21 Consult to Physician [CONS] Routine Comment: Consulting Provider: BENJAMIN LOVE Physician Instructions: Reason For Exam: V. tach Primary care physician: [employer] Hospitalization Reason for admission: chest pain Condition: Serious Hospital course: HPI: 55-year-old -[place] female with history of insulin-dependent diabetes, hypertension, hyperlipidemia and vitamin D deficiency comes in for palpitations and chest tightness since 9 AM. Apparently he had the symptoms before but did not see a physician interventional cardiologist at that time patient felt dizzy and lightheaded. Chest tightness is intermittent. Precipitated by palpitations. EMS was called and patient was given amiodarone 150 mg. Route of administration is not known. No fever or chills. No diaphoresis. No shortness of breath. Patient says her heart is fine and wanted to leave AMA after couple hours. ED course--- patient undergo signed out AMA.. Patient was explained the dis ease process and the pathophysiology after which he decided to stay. Patient was started on amiodarone IV and oral diltiazem. Patient was in V. tach with a heart rate of 160. Intermittently changed to sinus rhythm with frequent PVCs. Admitted to IM for further management and observation for ventricular tachycardia. Hospital Course: 10/15: Currently on toprol and amiodorone for VT. Ventricular rate fluctuates between 80-120s. Based on extensive work up in past, cardiology recommends transfer. Will coordinate with them for arrangements. 10/16 : remains on suppressive therapy. Still waiting for bed at [facility] for transfer so patient can get EP services with her physician interventional cardiologist there. 10/17: Transfer accepted by [facility] cardiology service. Pending bed avail ability. 10/18: Transferred successfully to [facility] Assessment and Plan: # Ventricular tachycardia Current Visit: Yes Status: Acute Plan to address problem: Patient initiated on IV amiodarone and oral diltiazem 30 mg every 6 hours IV Lopressor given Cardiology consult requested Patient responding to amiodarone drip Defer to cardiology regarding further management Will defer to [facility], per note symptoms date back to 2010, had cardiac cath and EP study which were normla. Cardiac MR was also reported to be normal. EPS did not induce VT , patient was subsequently initiated on metoprolol. # Acute coronary syndrome Current Visit: Yes Status: Acute Plan to address problem: Ventricular rate induced Troponins are negative x 2 Lexiscan deferred to cardiology # Hypertension Current Visit: Yes Status: Chronic Qualifiers: Hypertension type: primary hypertension Qualified Code(s): I10 - Essential (primary) hypertension Plan to address problem: Continue home antihypertensives: metoprolol, amlodipine. # IDDM (insulin dependent diabetes mellitus) Current Visit: Yes Status: Chronic Plan to address problem: Hold home metformin Lantus 22 units qhs + SSI Continue home insulin and coverage Check hemoglobin A1c # Vitamin D deficiency Current Visit: Yes Status: Chronic Plan to address problem: Hold vitamin D for now # Hypokalemia Current Visit: Yes Status: Acute Plan to address problem: Supplemented mg 2.0 ERP # Obesity (BMI 30-39.9) Current Visit: Yes Status: Chronic Plan to address problem: Patient to be referred to Dr. Cohen-bariatric surgeon at the time of discharge # DVT prophylaxis Current Visit: Yes Status: Acute Plan to address problem: On anticoagulation GI prophylaxis Disposition: 02 SHORT TERM HOSPITAL Final Discharge Diagnosis (Prints w/discharge instructions): Ventricular Tachycardia Core Measure Documentation - Palliative Care Palliative Care/ Comfort Measures: Not Applicable - Core Measures Any of the following diagnoses?: none Exam - Physical Exam Narrative exam: Physical Exam: VITAL SIGNS: Reviewed. GENERAL: The patient appears normally developed, Vital signs as documented. HEAD: No signs of head trauma. EYES: Pupils are equal. Extraocular motions intact. EARS: Hearing grossly intact. MOUTH: Oropharynx is normal. NECK: No adenopathy, no JVD. CHEST: Chest with clear breath sounds bilaterally. No wheezes, rales, or rhonchi. CARDIAC: Regular rate and rhythm. S1 and S2, without murmurs, gallops, or rubs. VASCULAR: No Edema. Peripheral pulses normal and equal in all extremities. ABDOMEN: Soft, non tender and non distended. No rebound or guarding, and no masses palpated. Bowel Sounds normal. MUSCULOSKELETAL: Good range of motion of all major joints. Extremities without clubbing, cyanosis or edema. NEUROLOGIC EXAM: Alert and oriented x 4. no focal sensory or strength deficits. PSYCHIATRIC: Mood normal. SKIN: detail exam as documented in skin assessment - Constitutional Vitals: Temp Pulse Resp BP Pulse Ox 98.1 F 77 11 L 173/101 95 10/18/21 20:00 10/18/21 23:00 10/18/21 23:30 10/18/21 23:30 10/18/21 22:30 Plan Follow up with: PRIMARY CARE, [Primary Care Provider] - 3-5 Days
== END 2021-10-18 23:59 | disposition short-term general hospital (02) | DRG 309 ==
LOC: ED 14:06 → 4A 14:07 → IMCU 10-15 05:24
PROVIDERS: ADMIT Internal Medicine; ATTEND Internal Medicine
DX: I47.2 Ventricular tachycardia (principal); I24.9 Acute ischemic heart disease, unspecified; R07.2 Precordial pain; I10 Essential (primary) hypertension; E11.9 Type 2 diabetes mellitus without complications; E87.6 Hypokalemia; E78.5 Hyperlipidemia, unspecified; Z82.49 Family history of ischemic heart disease and other diseases of the circulatory system; E66.9 Obesity, unspecified; Z68.39 Body mass index [BMI] 39.0-39.9, adult; Z20.822 Contact with and (suspected) exposure to COVID-19; E55.9 Vitamin D deficiency, unspecified
CPT/HCPCS: 36415; 71045; 80048; 80053; 82962; 83735; 84484; 85025; 87641; 93005; 93010; G0378; J3490; J7060; J9280; Q0162; Q9967; J0282; J1650; J1815; J7030; U0003